=== PATIENT | male | born 1995 | race Caucasian/White ===

== ENCOUNTER 2022-12-31 17:35 | Emergency (ER) | payer OTHER ==
[2022-12-31] MEDS ORDERED: Ondansetron 4 MG Tab.DIS PO ONE (18:19)
[2022-12-31 18:48] LABS: ESTIMATED GFR 106 mL/min (>60)
== END 2022-12-31 19:18 | disposition home or self-care (01) ==
LOC: JP.ED 17:35
DX: R11.2 Nausea with vomiting, unspecified (principal); K22.6 Gastro-esophageal laceration-hemorrhage syndrome; F12.90 Cannabis use, unspecified, uncomplicated
CPT/HCPCS: 36415; 71046; 80053; 85025; 86140; 99283; 99284; Q0162